=== PATIENT | male | born 1995 | race Caucasian/White ===

== ENCOUNTER 2017-04-28 14:58 | Emergency (ER) | payer BC ==
[~2017-04-28] VITALS: Ht 177.8 cm; Wt 72.7 kg
[2017-04-28 14:59] VITALS: BP 158/85; TEMP 99.1
[2017-04-28] MEDS ORDERED: PREDNISONE10 MG (15:03)
[2017-04-28 17:06] VITALS: PULSE 74
[2017-04-28] MEDS ORDERED: PROAIR HFA0.09 MG/AC IH (17:06)
== END 2017-04-28 17:09 | disposition home or self-care (01) ==
LOC: COL.ER 14:58
DX: J06.9 Acute upper respiratory infection, unspecified (principal)

== ENCOUNTER 2020-05-13 20:00 | Emergency (ER) | payer BC ==
[~2020-05-13] VITALS: Ht 177.8 cm; Wt 72.7 kg
[~2020-05-13 20:00] MED LIST: PREDNISONE10 MG; PROAIR HFA0.09 MG/AC IH
[2020-05-13 20:23] VITALS: TEMP 97.3
[2020-05-13 22:17] LABS: BASO % 0.5 % (0.0-2.0); EOS # 0.1 (0.0-0.7); EOS % 1.1 % (0-4.0); GRAN % 68.6 % (42.2-75.2); HEMATOCRIT 46.8 % (42.0-52.0); HEMOGLOBIN 16.6 g/dl (13.5-18.0); LYMPH % 22.4 % (20.0-51.0); MEAN CELL VOLUME 87 fl (80.0-100.0); MEAN CORPUSCULAR HEMOGLOBIN 31 pg (27.0-31.0); MEAN CORPUSCULAR HGB CONC 36 g/dl (33.0-37.0); MEAN PLATELET VOLUME 10.9 fl (7.4-10.4); MONO # 0.6 (0.1-0.6); MONO % 7.2 % (1.7-9.3); PLATELET COUNT 140 K/mm3 (130-400); RED BLOOD COUNT 5.41 M/mm3 (4.20-5.60); REDCELL DISTRIBUTION WIDTH-CV 12.5 % (11.5-14.5)
[2020-05-13 22:23] LABS: INR 1.1 (0.8-3.0); PROTHROMBIN TIME 12.1 SECONDS (9.7-12.8)
[2020-05-13 22:26] LABS: ALBUMIN 4.9 gm/dL (3.5-5.0); BILIRUBIN,TOTAL 1.1 mg/dL (0.0-1.0); CALCIUM 9.4 mg/dL (8.4-10.2); CREATININE, serum 0.84 (0.66-1.25); PARTIAL THROMBOPLASTIN TIME 37.2 SECONDS (26.0-37.0)
[2020-05-13] MEDS ORDERED: AMOXICILLIN 8751 TAB PO (22:44)
[2020-05-14 01:05] VITALS: BP 148/97; PULSE 92
== END 2020-05-14 01:05 | disposition home or self-care (01) ==
LOC: COL.ER 20:00
PROVIDERS: Emergency Medicine
DX: R04.0 Epistaxis (principal); Z20.828 Contact with and (suspected) exposure to other viral communicable diseases
CPT/HCPCS: J2060; J3010